=== PATIENT | male | born 1995 ===

== ENCOUNTER 2024-10-20 06:23 | Day surgery (SDC) | payer BC ==
[~2024-10-20] VITALS: Ht 172.7 cm; Wt 86.2 kg
[2024-10-20] MEDS ORDERED: Lactated Ringer's 1,000 ML IV ONE ×2 (08:08→08:21)
[2024-10-20] MEDS ORDERED: propofoL 50 ML IV ONE (08:08)
== END 2024-10-20 09:15 | disposition home or self-care (01) ==
LOC: ORSCSDS 06:23
PROVIDERS: Internal Medicine Gastroenterology
PROC: 0DB58ZX Excision of Esophagus, Via Natural or Artificial Opening Endoscopic, Diagnostic (ICD-10-PCS; principal; 2024-10-20 09:30)
DX: R13.10 Dysphagia, unspecified (principal); K21.00 Gastro-esophageal reflux disease with esophagitis, without bleeding; K22.4 Dyskinesia of esophagus; R23.4 Changes in skin texture; K44.9 Diaphragmatic hernia without obstruction or gangrene; Z79.899 Other long term (current) drug therapy
CPT/HCPCS: 88305; 88312; J2704; J7120